=== PATIENT | male | born 1965 | race African-American/Black ===

== ENCOUNTER 2018-07-25 05:00 | Day surgery (SDC) | payer OTHER ==
[2018-07-24 09:24] LABS: HEMATOCRIT 45.9 % (42.0-54.0); HEMOGLOBIN 15.4 g/dL (13.5-17.5); MCH 29.7 pg (26.0-34.0); MCHC 33.6 g/dL (31.0-37.0); MCV 88.4 fL (80.0-100.0); MEAN PLATELET VOLUME 12.5 fL (7.4-10.4); RBC 5.19 10x6/uL (4.20-6.10); RDW 14.3 % (11.5-14.5); WBC 5.6 10x3/uL (4.8-10.8)
[~2018-07-25] VITALS: Ht 172.7 cm; Wt 86.2 kg
[~2018-07-25 05:00] MED LIST: BAYER CHEWABLE81 MG PO; CENTRUM MEN'S1 EACH PO; HYDROCODON-ACE1 EA10 PO; LISINOPRIL40 MG PO; NORVASC10 MG PO; SULFAMETHOXAZOL1 TA3 PO
[2018-07-25 05:49] VITALS: BP 121/86; Ht 172.7 cm; Wt 86.2 kg
--- NOTE | 2018-07-25 09:35 | NUR ---
REC'D FROM SURGERY. FAMILY AT BEDSIDE. GRAPE JUICE BROUGHT TO PT. EXPLAINED CRITERIA FOR DISCHARGE. VERBALIZED UNDERSTANDING,
--- NOTE | 2018-07-25 10:05 | NUR ---
FL TRAY BROUGHT TO PT ALONG WITH WATER AND MORE GRAPE JUICE. FAMILY AT BEDSIDE.
--- NOTE | 2018-07-25 10:26 | OP ---
PATIENT NAME: FREDERIC COPE MEDICAL RECORD: [id number] :61 LOCATION:D.OPS ADMISSION DATE: SURGEON: LUCIO GARCIA MD DATE OF OPERATION: 07/25/2018 SURGEON: Lucio Garcia MD ANESTHESIA: TIVA by Kiran Wright CRNA. DIAGNOSIS: Elevated PSA of 4.54 on 05/17/2018. PROCEDURE: Transrectal ultrasound and prostate biopsy. FINDINGS: A 29-gram prostate with intraprostatic stones, no hypoechoic areas. SPECIMENS: Prostate biopsy cores. BLOOD LOSS: None. CLINICAL HISTORY: This is a 53-year-old black male, who has an elevated PSA of 4.54. In the previous years, his PSA was normal. His family history is negative for BPH or prostate cancer. He has no voiding symptoms at all. He comes today to have a prostate biopsy. He did not wish to have a digital rectal examination done in the office. He is not allergic to any medications, and he was given [employer] to the OR. DESCRIPTION OF PROCEDURE: The patient was given IV sedation. He was then placed into the lithotomy position. The transrectal ultrasound probe was introduced. The prostate size was measured at 29 grams. Sextant biopsies were then obtained. At least 3 cores were obtained from each sextant. Once all the specimens were obtained, the procedure was terminated. The patient was then brought to the preoperative holding area. I will see him in followup next week to review the pathology results with him. TRANSINT:[id number] Voice Confirmation ID: [id number] DOCUMENT ID: [id number] LUCIO GARCIA MD at 1026 CC: [id number] DICTATION DATE: 07/25/18 0937 REAL ESTATE COORDINATOR: 07/25/18 0956 [facility] [address] [place] [address]
--- NOTE | 2018-07-25 10:35 | NUR ---
TOLERATED [place] TRAY. AMBULATED TO BATHROOM AND VOIDED IWTHOUT DIFFICULTY. BACK TO BED. IV DC'D WITH CATHETER INTACT.
--- NOTE | 2018-07-25 10:40 | NUR ---
WRITTEN AND VERBAL DC INST. GIVEN TO PT. VERBALIZED UNDERSTANDING,
--- NOTE | 2018-07-25 10:45 | NUR ---
DC'D HOME WITH FAMILY VIA PRIVATE VEHICLE. TAKEN TO VEHICLE VIA WC. STABLE AT TIME OF DC.
== END 2018-07-25 10:45 | disposition home or self-care (01) ==
LOC: D.OPS 05:00
PROVIDERS: Anesthesiology; ATTEND Urology
DX: N42.0 Calculus of prostate (principal)

== ENCOUNTER → 2018-08-13 09:44 | Outpatient (CLI) | payer OTHER ==
[2018-07-25 05:49] VITALS: BMI 28.9
== END | disposition home or self-care (01) ==
LOC: D.NM 09:44
PROVIDERS: ATTEND Urology
DX: C61 Malignant neoplasm of prostate (principal)